=== PATIENT | female | born 1995 | race Caucasian/White ===

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

== ENCOUNTER 2019-09-12 10:04 | Inpatient (IN) | payer OTHER ==
[2019-09-12] MEDS ORDERED: STADOL 2 MG IV PRN (16:28)
[2019-09-12] MEDS ORDERED: XYLOCAINE 1% HCL 20 ML MDV IJ PRN (16:28)
[2019-09-12] MEDS ORDERED: Zofran 4 MG/2 ML VIAL IV PRN (16:28)
[2019-09-12] MEDS ORDERED: Phenergan 25 MG INJ IV PRN (16:28)
[2019-09-12] MEDS ORDERED: PITOCIN 30 UNITS/ LR 500 ML 500 ML IV SCH ×2 (16:30)
[2019-09-12] MEDS ORDERED: Nubain 10 MG/ML IV PRN (18:00)
[2019-09-12] MEDS ORDERED: TYLENOL EXTRA STRENGTH 500 MG PO PRN (18:00)
[2019-09-12 20:59] LABS: Absolute Neutrophil Ct (ANC) 6.46 (1.4-6.9); BASOPHIL % 0.2 % (0.0-0.4); Basophil (Absolute #) 0.02 (0-0.4); Eosinophil % 1.9 % (0.00-5.0); Eosinophil (Absolute #) 0.18 (0-0.5); Hematocrit 38.4 % (35-47); Hemoglobin 13.1 gm/dl (12.0-16.0); Lymphocyte (Absolute #) 2.06 (1.0-4.6); Lymphocytes % 21.5 % (24.0-44.0); Mean Cell Volume 87.1 fl (78-100); Mean Corpuscular Hemoglobin 29.7 pg (26-32); Mean Corpuscular Hgb Concent. 34.1 g/dl (32-36); Mean Platelet Volume 10.4 fl (7.5-11.0); Monocyte (Absolute #) 0.88 (0.0-1.3); Monocytes % 9.2 % (0.0-12.0); Neutrophil % 67.2 % (36.0-66.0); Platelet Count 236 K/mm3 (150-450); Red Blood Count 4.41 M/mm3 (4.1-5.4); Red Cell Distribution Width 14.8 % (11.5-14.0); White Blood Count 9.6 K/mm3 (4.0-10.5)
[2019-09-12 21:16] LABS: Amphetamine,Urine NEGATIVE (NEGATIVE); Barbiturate,Urine NEGATIVE (NEGATIVE); Benzodiazepine,Urine NEGATIVE (NEGATIVE); Cocaine,Urine NEGATIVE (NEGATIVE); Methadone,Urine NEGATIVE (NEGATIVE); Opiate,Urine NEGATIVE (NEGATIVE); PCP,Urine NEGATIVE (NEGATIVE); THC,Urine NEGATIVE (NEGATIVE)
[2019-09-12] MEDS: CLINDAMYCIN-D5W 900 MG/50 ML*** 900 MG/50 ML BAG IV SCH (22:07)
[2019-09-13] MEDS: Lactated Ringers 1,000 ML IV SCH ×2 (03:16→07:03)
[2019-09-13] MEDS: CLINDAMYCIN-D5W 900 MG/50 ML*** 900 MG/50 ML BAG IV SCH (06:28)
[2019-09-13] MEDS ORDERED: SUBLIMAZE 100 MCG/2 ML ONE (07:13)
[2019-09-13] MEDS ORDERED: TUCKS TP PRN (11:52)
[2019-09-13] MEDS ORDERED: Restoril 15 MG PO PRN (11:52)
[2019-09-13] MEDS ORDERED: Anucort-HC SUPPOSITORY PR PRN (11:52)
[2019-09-13] MEDS ORDERED: Dermoplast Spray TP PRN (11:52)
[2019-09-13] MEDS ORDERED: Dulcolax 10 MG SUPP PR PRN (11:52)
[2019-09-13] MEDS ORDERED: Ambien 10 MG PO PRN (11:52)
[2019-09-13] MEDS ORDERED: Mylicon 80MG PO PRN (11:52)
[2019-09-13] MEDS ORDERED: NORCO 5/325 MG PO PRN (11:52)
[2019-09-13] MEDS ORDERED: CORTISONE 1% CREAM TP PRN (11:52)
[2019-09-13] MEDS ORDERED: EPIDURAL - ROPIVICAINE0.5%/SUFENTA 250 MCG/NS EPIDURAL PRN (13:27)
[2019-09-13] MEDS: Colace 100 MG PO SCH (21:02)
[2019-09-14 05:00] LABS: Absolute Neutrophil Ct (ANC) 6.55 (1.4-6.9); BASOPHIL % 0.2 % (0.0-0.4); Basophil (Absolute #) 0.02 (0-0.4); Eosinophil % 1.4 % (0.00-5.0); Eosinophil (Absolute #) 0.14 (0-0.5); Hematocrit 34.3 % (35-47); Hemoglobin 11.5 gm/dl (12.0-16.0); Lymphocyte (Absolute #) 2.26 (1.0-4.6); Lymphocytes % 23.2 % (24.0-44.0); Mean Cell Volume 88.4 fl (78-100); Mean Corpuscular Hemoglobin 29.6 pg (26-32); Mean Corpuscular Hgb Concent. 33.5 g/dl (32-36); Monocyte (Absolute #) 0.78 (0.0-1.3); Neutrophil % 67.2 % (36.0-66.0); Platelet Count 207 K/mm3 (150-450); Red Blood Count 3.88 M/mm3 (4.1-5.4); Red Cell Distribution Width 14.8 % (11.5-14.0); White Blood Count 9.8 K/mm3 (4.0-10.5)
[2019-09-14 05:19] VITALS: O2SAT 98
[2019-09-14] MEDS: MOTRIN 400 MG PO PRN ×2 (06:31→12:46)
[2019-09-14] MEDS ORDERED: FERREX 150 PO SCH (10:00)
[2019-09-14] MEDS ORDERED: hydroDIURIL 25 MG PO SCH (10:00)
[2019-09-14] MEDS: Colace 100 MG PO SCH ×2 (10:05→22:21)
[2019-09-15 11:14] VITALS: BP 130/71; PULSE 106
== END 2019-09-15 10:35 | disposition home or self-care (01) | DRG 807 ==
LOC: OB 16:57 → OBSVTOIN 09-13 06:00
PROVIDERS: ADMIT Family Medicine; ATTEND Family Medicine
PROC: 10E0XZZ Delivery of Products of Conception, External Approach (ICD-10-PCS; principal; 2019-09-13)
PROC: 0KQM0ZZ Repair Perineum Muscle, Open Approach (ICD-10-PCS; 2019-09-13)
PROC: 3E033VJ Introduction of Other Hormone into Peripheral Vein, Percutaneous Approach (ICD-10-PCS; 2019-09-13)
DX: O70.1 Second degree perineal laceration during delivery (principal); Z37.0 Single live birth; Z3A.40 40 weeks gestation of pregnancy; O66.0 Obstructed labor due to shoulder dystocia
CPT/HCPCS: 36415; 80307; 85025; 87340; G0378; J2300; J2590; J3010; A9270-GY

== ENCOUNTER 2023-04-09 15:58 | Observation (INO) | payer OTHER ==
[2023-04-09 16:30] VITALS: RESP 18; TEMP 98.2
[2023-04-09 16:34] LABS: Absolute Neutrophil Ct (ANC) 6.76 x10^3/uL (1.4-6.9); BASOPHIL % 0.3 % (0.0-0.4); Basophil (Absolute #) 0.03 x10^3/uL (0-0.4); Eosinophil % 3.1 % (0.00-5.0); Eosinophil (Absolute #) 0.29 x10^3/uL (0-0.5); Hematocrit 35.3 % (35-47); Hemoglobin 11.9 g/dL (12.0-16.0); IMMATURE GRAN # 0.09 x10^3u/L (0.00-0.03); Lymphocyte (Absolute #) 1.72 x10^3/uL (1.0-4.6); Lymphocytes % 18.2 % (24.0-44.0); Mean Cell Volume 86.1 fL (78-100); Mean Corpuscular Hgb Concent. 33.7 g/dL (32-36); Mean Platelet Volume 9.5 fL (7.5-11.0); Monocyte (Absolute #) 0.56 x10^3/uL (0.0-1.3); Monocytes % 5.9 % (0.0-12.0); Neutrophil % 71.5 % (36.0-66.0); Platelet Count 242 x10^3/uL (150-450); Red Cell Distribution Width 13.8 % (11.5-14.0); White Blood Count 9.5 x10^3/uL (4.0-10.5)
[2023-04-09 16:53] LABS: ALBUMIN 3.5 g/dL (3.5-5.0); ANION GAP 12.6 MEQ/L (5-15); BILIRUBIN,TOTAL 0.4 mg/dL (0.2-1.3); Calcium 8.7 mg/dL (8.4-10.2); Creatinine 1 0.64 mg/dL (0.52-1.04); EST GLOMERULAR FILTRATION RATE 124.9 ML/MIN; Potassium 3.8 mmol/L (3.5-5.1); Total Protein 6.9 g/dL (6.3-8.2)
[2023-04-09 17:22] LABS: Uric Acid 4.5 mg/dL (2.6-6.0)
[2023-04-09 17:26] LABS: Appearance Cloudy (Clear); Bacteria Moderate /HPF (None Seen); Bilirubin Negative (Negative); Blood Trace (Negative); Epithelial Cells Moderate /HPF (None Seen); Glucose, Urine Negative (Negative); Hyaline Casts NONE SEEN /LPF (0-2); Ketones Negative (Negative); Leukocyte Esterase Large (Negative); Nitrite Negative (Negative); Ph 6.5 (4.6-8.0); Protein,Urine Dip Negative (Negative); RBC 0-2 /HPF (0-5); Specific Gravity <=1.005 (1.005-1.030); Urobilinogen 0.2 mg/dL (0.2); WBC 51-100 /HPF (0-5)
--- NOTE | 2023-04-09 17:26 | XRAY ---
Indication: New onset hypertension. Evaluate JOSE ENRIQUE. Limited OB ultrasound demonstrates single intrauterine in cephalic presentation. heart rate 138 BPM. Four-quadrant JOSE ENRIQUE is 11.8 cm, largest pocket 4.8 cm.
[2023-04-09 17:36] LABS: ADD URINE CULTURE? YES (NO)
[2023-04-09] MEDS ORDERED: Lactated Ringers 1,000 ML IV ONE ×2 (17:44→17:46)
[2023-04-09] MEDS ORDERED: ROCEPHIN 1 Gm-D5w 50 ml Bag** 1 G/50 ML IVPB IV ONE (17:55)
[2023-04-09 21:27] VITALS: BP 143/90; PULSE 95; O2SAT 99
[2023-04-10] MEDS ORDERED: ROCEPHIN 1 Gm-D5w 50 ml Bag** 1 G/50 ML IVPB IV SCH (10:00)
== END 2023-04-09 21:25 | disposition home or self-care (01) ==
LOC: OB 15:58
PROVIDERS: ADMIT Family Medicine; ATTEND Family Medicine
DX: Z34.83 Encounter for supervision of other normal pregnancy, third trimester (principal); Z3A.29 29 weeks gestation of pregnancy
CPT/HCPCS: 36415; 59025; 76815; 80053; 81001; 84550; 85025; 87077; 87086; 87186; 99213; J0696

== ENCOUNTER 2023-06-02 08:27 | Inpatient (IN) | payer OTHER ==
[2023-06-02] MEDS ORDERED: Dulcolax 10 MG SUPP PR PRN (17:27)
[2023-06-02] MEDS ORDERED: Zofran 4 MG/2 ML VIAL IV PRN (19:00)
[2023-06-02 20:13] LABS: Absolute Neutrophil Ct (ANC) 5.56 x10^3/uL (1.4-6.9); BASOPHIL % 0.3 % (0.0-0.4); Basophil (Absolute #) 0.02 x10^3/uL (0-0.4); Eosinophil % 2.7 % (0.00-5.0); Hematocrit 34.6 % (35-47); Hemoglobin 11.4 g/dL (12.0-16.0); IMMATURE GRAN # 0.09 x10^3u/L (0.00-0.03); IMMATURE GRAN % 1.2 % (0.00-0.4); Lymphocyte (Absolute #) 1.42 x10^3/uL (1.0-4.6); Mean Cell Volume 86.9 fL (78-100); Mean Corpuscular Hemoglobin 28.6 pg (26-32); Mean Corpuscular Hgb Concent. 32.9 g/dL (32-36); Mean Platelet Volume 8.6 fL (7.5-11.0); Monocyte (Absolute #) 0.19 x10^3/uL (0.0-1.3); Monocytes % 2.5 % (0.0-12.0); Neutrophil % 74.3 % (36.0-66.0); Platelet Count 352 x10^3/uL (150-450); Red Blood Count 3.98 x10^6/uL (4.1-5.4); Red Cell Distribution Width 13.7 % (11.5-14.0); White Blood Count 7.5 x10^3/uL (4.0-10.5)
[2023-06-02] MEDS: CLINDAMYCIN-D5W 900 MG/50 ML*** 900 MG/50 ML BAG IV SCH (20:17)
[2023-06-02] MEDS: CYTOTEC PO SCH ×2 (20:17→22:20)
[2023-06-02 20:37] LABS: Amphetamine,Urine NEGATIVE (NEGATIVE); Barbiturate,Urine NEGATIVE (NEGATIVE); Benzodiazepine,Urine NEGATIVE (NEGATIVE); Cocaine,Urine NEGATIVE (NEGATIVE); Methadone,Urine NEGATIVE (NEGATIVE); Opiate,Urine NEGATIVE (NEGATIVE); PCP,Urine NEGATIVE (NEGATIVE); THC,Urine NEGATIVE (NEGATIVE)
[2023-06-02 21:11] LABS: ABO TYPING O; Antibody Screen NEGATIVE (NEGATIVE); RH TYPING POSITIVE
[2023-06-03] MEDS ORDERED: Lactated Ringers 1,000 ML IV ONE
[2023-06-03] MEDS ORDERED: FENTANYL 2 MCG-BUPIV 0.125%-NS 250 ML Epidur 250 ML EPIDURAL SCH
[2023-06-03] MEDS ORDERED: Ephedrine Sulfate 50 MG/ML IV PRN
[2023-06-03] MEDS ORDERED: Trandate 100 MG PO ONE (00:06)
[2023-06-03] MEDS: CYTOTEC PO SCH ×3 (00:10→04:24)
[2023-06-03] MEDS: CLINDAMYCIN-D5W 900 MG/50 ML*** 900 MG/50 ML BAG IV SCH ×3 (04:22→16:47)
[2023-06-03] MEDS ORDERED: PITOCIN 30 UNITS/ LR 500 ML 30 UNITS/500 ML PLAST..BAG IV SCH (06:00)
[2023-06-03] MEDS ORDERED: Lactated Ringers 1,000 ML IV SCH (06:00)
[2023-06-03] MEDS ORDERED: TYLENOL EXTRA STRENGTH 500 MG PO PRN ×2 (10:00→12:00)
[2023-06-03] MEDS ORDERED: Mylicon 80MG PO PRN (12:00)
[2023-06-03] MEDS ORDERED: Dermoplast Spray TP PRN (12:00)
[2023-06-03] MEDS ORDERED: CORTISONE 1% CREAM TP PRN (12:00)
[2023-06-03] MEDS ORDERED: LANSINOH 40 GM TOP PRN (12:00)
[2023-06-03] MEDS ORDERED: TUCKS TP PRN (12:00)
[2023-06-03] MEDS ORDERED: MOTRIN 400 MG PO PRN (12:00)
[2023-06-03 20:48] VITALS: RESP 18
[2023-06-04 01:43] VITALS: O2SAT 98
[2023-06-04] MEDS: Docusate Sodium 100 MG PO SCH ×2 (03:55→10:45)
[2023-06-04 04:45] LABS: Absolute Neutrophil Ct (ANC) 8.35 x10^3/uL (1.4-6.9); BASOPHIL % 0.4 % (0.0-0.4); Basophil (Absolute #) 0.04 x10^3/uL (0-0.4); Eosinophil % 2.1 % (0.00-5.0); Eosinophil (Absolute #) 0.24 x10^3/uL (0-0.5); IMMATURE GRAN # 0.08 x10^3u/L (0.00-0.03); IMMATURE GRAN % 0.7 % (0.00-0.4); Lymphocyte (Absolute #) 2.08 x10^3/uL (1.0-4.6); Lymphocytes % 18.3 % (24.0-44.0); Mean Cell Volume 86.2 fL (78-100); Mean Corpuscular Hemoglobin 28.7 pg (26-32); Mean Corpuscular Hgb Concent. 33.3 g/dL (32-36); Mean Platelet Volume 8.5 fL (7.5-11.0); Monocyte (Absolute #) 0.58 x10^3/uL (0.0-1.3); Monocytes % 5.1 % (0.0-12.0); Neutrophil % 73.4 % (36.0-66.0); Platelet Count 342 x10^3/uL (150-450); Red Blood Count 3.83 x10^6/uL (4.1-5.4); Red Cell Distribution Width 13.7 % (11.5-14.0); White Blood Count 11.4 x10^3/uL (4.0-10.5)
--- NOTE | 2023-06-04 09:16 | PCM.DS ---
Discharge Summary Date of Admission: 06/03/23 08:27 Admitting Physician: ALANNA SAENZ Primary Care Provider: ALANNA SAENZ Allergies Allergies amoxicillin [From Augmentin] Allergy (Intermediate, Verified 06/02/23 21:00) Swelling clavulanic acid [From Augmentin] Allergy (Intermediate, Verified 06/02/23 21:00) [facility] Summary - Hospital Course Hospital Course: patient induced at 37 4/7 wks EGA for PIH, uncomplicated vaginal delivery. doing great , labetalol continued and bp well controlled. bottle feeding, well bonded with baby boy - Vitals & Intake/Output Vital Signs: Vital Signs Temperature 97.8 F 06/04/23 08:00 Pulse Rate 85 06/04/23 08:00 Respiratory Rate 18 06/04/23 08:00 Blood Pressure 134/82 06/04/23 08:00 O2 Sat by Pulse Oximetry 98 06/04/23 01:42 Intake & Output: Intake & Output 06/01/23 06/02/23 06/03/23 06/04/23 11:59 11:59 11:59 11:59 Intake Total 1725 500 Balance 1725 500 Weight 116.573 kg - Lab Result Diagrams: 06/04/23 04:40 Lab Results-Last 24 Hrs: Lab Results-Last 24 Hours 06/04/23 Range/Units 04:40 WBC 11.4 H (4.0-10.5) x10^3/uL RBC 3.83 L (4.1-5.4) x10^6/uL Hgb 11.0 L (12.0-16.0) g/dL Hct 33.0 L (35-47) % MCV 86.2 (78-100) fL MCH 28.7 (26-32) pg MCHC 33.3 (32-36) g/dL RDW 13.7 (11.5-14.0) % Plt Count 342 (150-450) x10^3/uL MPV 8.5 (7.5-11.0) fL Gran % 73.4 H (36.0-66.0) % Immature Gran % (Auto) 0.7 H (0.00-0.4) % Nucleat RBC Rel Count 0.0 (0.00-0.1) % Eos # (Auto) 0.24 (0-0.5) x10^3/uL Immature Gran # (Auto) 0.08 H (0.00-0.03) x10^3u/L Absolute Lymphs (auto) 2.08 (1.0-4.6) x10^3/uL Absolute Monos (auto) 0.58 (0.0-1.3) x10^3/uL Absolute Nucleated RBC 0.00 (0.00-0.01) x10^3u/L Lymphocytes % 18.3 L (24.0-44.0) % Monocytes % 5.1 (0.0-12.0) % Eosinophils % 2.1 (0.00-5.0) % Basophils % 0.4 (0.0-0.4) % Absolute Granulocytes 8.35 H (1.4-6.9) x10^3/uL Basophils # 0.04 (0-0.4) x10^3/uL - Procedures and Test Procedures and Tests throughout Hospitalization: Therapy Orders & Screens 06/03/23 09:00 Standby STAT Comment: Diagnosis: IUO; IOL Discharge Exam General Appearance: no apparent distress Neurologic Exam: alert, oriented x 3 Respiratory Exam: normal breath sounds, lungs clear, No respiratory distress Cardiovascular Exam: regular rate/rhythm, normal heart sounds Gastrointestinal/Abdomen Exam: soft, No tenderness, No mass Extremity Exam: normal inspection, normal range of motion Skin Exam: normal color, warm, dry Final Diagnosis/Problem List - Final Discharge Diagnosis/Problem (1) Vaginal delivery Current Visit: Yes Status: Acute Code(s): O80 - ENCOUNTER FOR FULL-TERM UNCOMPLICATED DELIVERY (2) induced hypertension Current Visit: Yes Status: Acute Code(s): O13.9 - GESTATIONAL HTN W/O SIGN IFICANT PROTEINURIA, UNSP TRIMESTER - Discharge Disposition: Home, Self-Care Condition: Stable Prescriptions: Continue Labetalol HCl 100 mg [Trandate 100 MG] 100 mg PO BID Discontinued Vits W-Ca,Fe,FA(<1Mg) [] 1 each PO DAILY Follow up with: ALANNA SAENZ MD [Primary Care Provider] -
[2023-06-04] MEDS ORDERED: FERREX 150 PO SCH (10:00)
[2023-06-04] MEDS ORDERED: Adacel Vial IM ONE (10:00)
[2023-06-04 17:57] VITALS: BP 128/64; PULSE 82; TEMP 98.2
== END 2023-06-04 20:06 | disposition home or self-care (01) | DRG 807 ==
LOC: OB 08:27 → OBSVTOIN 06-03 08:27
PROVIDERS: ADMIT Family Medicine; ATTEND Family Medicine
PROC: 10E0XZZ Delivery of Products of Conception, External Approach (ICD-10-PCS; principal; 2023-06-03)
DX: O13.4 Gestational [pregnancy-induced] hypertension without significant proteinuria, complicating childbirth (principal); Z37.0 Single live birth; Z3A.37 37 weeks gestation of pregnancy; Z20.828 Contact with and (suspected) exposure to other viral communicable diseases
CPT/HCPCS: 36415; 80307; 85025; 86762; 86850; 86900; 86901; 90715; 94799; G0378; G0379; J2590; A9270-GY

== ENCOUNTER 2023-08-23 10:55 | Day surgery (SDC) | payer OTHER ==
--- NOTE | 2023-08-23 08:39 | HP ---
DATE OF SURGERY: 08/23/2023 HISTORY OF PRESENT ILLNESS: The patient is a 28-year-old who has two children and no longer desires fertility and desires a tubal. PAST MEDICAL HISTORY: Migraine, gastroesophageal reflux disease, urinary tract infection in the past. She wears corrective lenses. PAST SURGICAL HISTORY: No prior surgeries. MEDICATIONS: No medications. ALLERGIES: AMOXICILLIN. CLAVULANIC ACID. FAMILY HISTORY: Myocardial infarction. SOCIAL HISTORY: No smoking. Occasional alcohol use. REVIEW OF SYSTEMS: Twelve systems reviewed. No chest pain or palpitations. Other systems negative or noncontributory as above and per preadmission questionnaire. PHYSICAL EXAMINATION: Height 5 feet 8 inches. BMI 38. GENERAL: No acute distress. HEENT: Sclerae nonicteric. EOMI. Oral mucous membranes moist. NECK: No JVD. CHEST: Equal excursion, nonlabored breathing. CVS: Regular rate and rhythm. ABDOMEN: Soft. No peritoneal signs. EXTREMITIES: No significant edema. NEURO: Alert, moving extremities symmetrically. PSYCH: Appropriate mood and affect. SKIN: Dry. IMPRESSION: Undesired fertility. Laparoscopic-assisted bilateral tubal cauterization possible open. Risks explained of bleeding, infection, bowel, bladder, ureter. Risk of tubal failure rate up to 4%. Risk of deep venous thrombosis, pulmonary embolism, pneumonia, anesthesia and pain but not limited to. The patient understands and agrees to the planned procedure. Discussed outpatient lap assisted bilateral tubal catheterization possible open as an outpatient.
[2023-08-23] MEDS ORDERED: Lactated Ringers 1,000 ML IV ONE (11:06)
[2023-08-23 11:08] LABS: HCG URINE TEST NEGATIVE (NEGATIVE)
[2023-08-23 11:22] VITALS: RESP 18; O2SAT 97
[2023-08-23] MEDS: Lactated Ringers 1,000 ML IV SCH (11:27)
[2023-08-23] MEDS ORDERED: SUBLIMAZE 100 MCG/2 ML ONE (12:07)
[2023-08-23] MEDS ORDERED: DIPRIVAN 200 MG/20 ML IV ONE (12:07)
[2023-08-23] MEDS ORDERED: BRIDION 200MG/2ML IV ONE (12:07)
[2023-08-23] MEDS ORDERED: ROCURONIUM BROMIDE IV ONE (12:07)
[2023-08-23] MEDS ORDERED: Zofran 4 MG/2 ML VIAL ONE ×2 (12:07→13:44)
[2023-08-23] MEDS ORDERED: Decadron 4 MG INJ ONE (12:07)
[2023-08-23] MEDS ORDERED: TORAdol 30 mg Injection ONE (12:07)
[2023-08-23] MEDS ORDERED: Xylocaine-Mpf 2% 5 Ml Vial ONE (12:07)
[2023-08-23] MEDS ORDERED: Sensorcaine 0.25% 10 ML ONE (12:18)
[2023-08-23] MEDS ORDERED: KEFZOL 1 GM ONE (12:31)
[2023-08-23] MEDS ORDERED: Hydromorphone 1 mg/ml Injection ONE (14:01)
[2023-08-23 14:39] VITALS: BP 130/81; PULSE 81; TEMP 97.2
--- NOTE | 2023-08-23 15:26 | OP ---
SURGERY DATE/TIME: 08/23/2023 1220 PREOPERATIVE DIAGNOSIS: Undesired fertility, desires for bilateral tubal cauterization. POSTOPERATIVE DIAGNOSIS: Undesired fertility, desires for bilateral tubal cauterization. PROCEDURE: Laparoscopic bilateral tubal cauterization. SURGEON: Dr. Valerio Hardwick. ANESTHESIA: General. QUANTITATIVE BLOOD LOSS: Minimal. INDICATIONS: As noted above. Risks and benefits explained in detail and not limited to and consent obtained. DESCRIPTION OF PROCEDURE AND FINDINGS: The patient is taken to the operating room. General anesthesia was induced. Prepped and draped in usual sterile fashion. After official time out and no disagreement with planned procedure, a transverse incision made at supraumbilical area. Fascia grasped and pulled upwards. Veress needle inserted and tested with saline. Pneumoperitoneum accomplished. Insufflating opening pressure 0 to 15. A 5 mm bladeless port and camera were inserted without difficulty. Followed by a left lower quadrant 5 mm port, right lower quadrant 5 mm port. Tubes, ovaries and uterus well visualized. In Trendelenburg position with the grasper on the opposite side the tube was elevated upward and the bipolar Kleppinger type system was used to cauterize 3.5 to 4 cm segment down to 0 on the ohm meter. First segment 3.5 to 4 cm on each side this is first started with the left side and then the right side. Picture was taken. Again, cauterization went down to 0 on the ohm meter. Good hemostasis noted. This was done elevating the tubes well away from retroperitoneum well away from the viscera or other structures. At this point pneumoperitoneum decompressed. Port removed. Skin incision closed with 4-0 Vicryl. Steri-Strips and sterile dressing, 0.25% Marcaine local injected along the skin incision fascial defects. There were no immediate complications. Findings discussed with the family out in the waiting area.
== END 2023-08-23 14:47 | disposition home or self-care (01) ==
LOC: SDC 10:55
PROVIDERS: ATTEND Surgery
DX: Z30.2 Encounter for sterilization (principal)
CPT/HCPCS: 81025; J0690; J1100; J1170; J1885; J2405; J2704; J3010